=== PATIENT | female | born 1965 | race Caucasian/White ===

== ENCOUNTER 2017-01-25 13:39 | Inpatient (IN) | payer OTHER ==
[~2017-01-25] VITALS: Ht 160 cm; Wt 96.6 kg
--- NOTE | 2017-01-25 13:44 | NUR ---
PT PRESENTS TO ER C/O OF FEELING SOB WITH EXERTION. PT STATES SHE HAS BEEN COUGHING FOR OVER A MONTH AND STATES SHE FEELS LIKE THE COUGH AND SOB IS WORSE. PT AFEBRILE IN TRIAGE WITH A TEMP OF 99.3, PT SKIN WARM. PT RA SAT 95%, PT TACHYCARDIC EKG DONE AT TRIAGE
--- NOTE | 2017-01-25 13:46 | NUR ---
PT ALSO C/O OF CHEST PAIN ON AND OFF FOR A MONTH
--- NOTE | 2017-01-25 14:03 | ED DYSPNEA/ASTHMA COMPLAINT ---
History of Present Illness General Chief Complaint: Nausea, Vomiting, Diarrhea Stated Complaint: NVD Source: patient, family, old records Exam Limitations: no limitations Vital Signs & Intake/Output Vital Signs & Intake/Output Vital Signs Date Time Temp Pulse Resp B/P Pulse O2 O2 Flow FiO2 Ox Delivery Rate 01/26 0720 97.6 85 20 124/78 97 Nasal 4.0L Cannula 01/26 0000 Nasal 3.0L Cannula 01/25 2236 98.9 90 22 118/72 93 Nasal 4.0L Cannula 01/25 1826 95 Nasal 3.0L Cannula 01/25 1826 98.1 96 20 132/62 95 Nasal 3.0L Cannula 01/25 1757 98.0 01/25 1750 98.0 98 20 126/58 95 Nasal 3.0L Cannula 01/25 1654 94 Nasal 3.0L Cannula 01/25 1642 101.0 115 20 144/78 94 Nasal 3.0L Cannula 01/25 1641 101.3 01/25 1554 101.3 122 18 154/77 92 Room Air 01/25 1436 92 01/25 1430 92 Room Air 01/25 1342 99.3 138 22 155/88 95 Room Air ED Intake and Output 01/26 0000 01/25 1200 Intake Total Output Total 400 Balance -400 Output, Urine 400 Patient 213 lb Weight Allergies Coded Allergies: Penicillins (Intermediate, HIVES 01/25/17) Reconcile Medications No Known Home Medications Triage Note: PT PRESENTS TO ER C/O OF FEELING SOB WITH EXERTION. PT STATES SHE HAS BEEN COUGHING FOR OVER A MONTH AND STATES SHE FEELS LIKE THE COUGH AND SOB IS WORSE. PT AFEBRILE IN TRIAGE WITH A TEMP OF 99.3, PT SKIN WARM. PT RA SAT 95%, PT TACHYCARDIC EKG DONE AT TRIAGE Triage Nurses Notes Reviewed? yes Onset: Abrupt Duration: week(s): (2), constant, getting worse Timing: recent history Severity: moderate, severe Activities at Onset: rest Prior Episodes/Possible Cause: no prior episodes Associated Symptoms: cough, chest pain HPI: 51-year-old female with history of chronic back pain presents to ER for evaluation complaining of progressively worsening constant shortness of breath that was initially present with exertion however now present with rest pain with inspiration cough productive of clear to yellow sputum and chest pain has been going on for the past 1 month however worse over the past 2 weeks. She has not sought care for the symptoms until today. She is an active smoker 10 cigarettes per day. She denies any history of asthma or lung problems. She is not taken anything for symptoms no recent travel no recent immobility no leg pain or swelling. She reports recent weight gain. No fever no chills no night sweats diaphoresis or weight loss no abdominal pain. Patient reports nausea without vomiting secondary to her coughing. (JAMILA NOEL) Past History Travel History Traveled to [place] past 21 day No Medical History Any Pertinent Medical History? see below for history Neurological: NONE EENT: NONE Cardiovascular: NONE Respiratory: NONE Gastrointestinal: NONE Hepatic: NONE Renal: NONE Musculoskeletal: DISC ISSUE CARPAL TUNNEL Surgical History Surgical History: none Psychosocial History What is your primary language Luxembourgish Tobacco Use: Current Daily Use Family History Hx Contributory? No (JAMILA NOEL) Review of Systems Review of Systems Constitutional: Reports: see HPI. All Other Systems: Reviewed and Negative Comments Review of systems: See HPI, All other systems negative. Constitutional, no chills no fever, no malaise HEENT: no sore throat no congestion, no ear pain Cardiovascular: chest pain , no palpitation , no orthopnea no ankle swelling Skin, no jaundice no rashes, no change in skin Respiratory: dyspnea cough sputum GI: No nausea no vomiting, no diarrhea : No dysuria Muscle skeletal: No joint pain, no joint swelling, no back pain, no neck pain, Neurologic: No numbness no headache Psych: No stress Heme/endocrine: No bruising no bleeding Immunology: No lymphadenopathy (JAMILA NOEL) Physical Exam Physical Exam General Appearance: well developed/nourished, alert, awake Respiratory: chest non-tender, crackles Comments: Well-developed well-nourished person in no acute distress HEENT: Normal EENT exam; PERRL, EOMI, HEAD is atraumatic. moist mucous membranes. Neck: Supple, no lymphadenopathy, normal range of motion Back: Nontender, no CVA tenderness. Full range of motion Cardiovascular: Regular rate and rhythms no murmurs rubs or gallops, normal JVP Respiratory: No respiratory distress. Patient speaking in full complete sentences. Crackles bilaterally no rhonchi no rales Abdomen: Soft, nontender nondistended, no appreciable organomegaly. Normal bowel sounds. No rebound/guarding, , No ascites. Extremity: No edema, full range of motion of extremities, normal and equal pulses bilaterally, 5 out of 5 strength noted to bilateral upper and lower extremities Neuro: Alert oriented x3, motor sensory normal, There were no obvious focal neurologic abnormalities. Skin: No appreciable rash on exposed skin, skin is warm and dry. Psych: Mood and affect is normal, memory and judgment is normal. Core Measures ACS in differential dx? Yes Severe Sepsis Present: No Septic Shock Present: No (TIBURCIO GONZALEZ,JAMILA) Progress Differential Diagnosis: asthma, AMI, bronchitis, costochondritis, CHF, COPD, musculoskeletal pain, pericarditis, pulmonary embolism, pneumonia, pneumothorax, unstable angina Plan of Care: Orders Procedure Date/time Status Nothing by Mouth 01/26 L Active Regular Diet 01/26 B Complete LACTIC ACID 01/26 0832 Active HEPATIC FUNCTION PANEL 01/26 0600 Complete GLUCOSE 01/26 0600 Complete WESTERGREN SED RATE 01/26 0600 Complete CORTISOL AM 01/26 0600 Complete CBC WITHOUT DIFFERENTIAL 01/26 0600 Complete BASIC ELECTROLYTES PLUS BUN&CR 01/26 0600 Complete ANTINUCLEAR ANTIBODY 01/26 0600 Active US-COMPLETE ABDOMEN 01/26 UNK Active ECHOCARDIOGRAM 01/26 UNK Active CORTISOL PM 01/25 2155 Complete OXYGEN SETUP (GEN) 01/25 2100 Complete LACTIC ACID 01/25 1958 Complete Vital Signs 01/25 1825 Active Teach/Educate 01/25 1825 Active Pain Treatment and Response 01/25 182 Active Nutritional Intake, Monitor 01/25 1825 Active Isolation 01/25 1825 Active Intake & Output 01/25 1825 Complete Patient Care Conference 01/25 1825 Active Activity/Ambulation 01/25 1825 Active Intake & Output 01/25 1759 Active Add-on Test (ER Only) 01/25 1735 Active STREP PNEUMO URINARY ANTIGEN 01/25 1731 Complete LEGIONELLA URINARY ANTIGEN 01/25 1731 Complete Add-on Test (ER Only) 01/25 1727 Active Pathway - chart 01/25 1712 Active House Staff 01/25 1712 Active Code Status 01/25 1712 Active Patient Data 01/25 1648 Active Admit to inpatient 01/25 1628 Active THYROID STIMULATING HORMONE 01/25 1426 Active LACTIC ACID 01/25 1426 Active HIV (Reflex to HIVCQ) 01/25 1426 Active HEPATITIS PANEL 01/25 1426 Active FREE T4 01/25 1426 Active CORTISOL PM 01/25 1426 Active B-TYPE NATRIURETIC PEP (BNP) 01/25 1426 Active Telemetry/Ham Curer 01/25 1413 Complete BLOOD CULTURE 01/25 1413 Active TROPONIN LEVEL 01/25 1413 Active MAGNESIUM 01/25 1413 Active COMPREHENSIVE METABOLIC PANEL 01/25 1413 Active CBC WITHOUT DIFFERENTIAL 01/25 1413 Complete EKG 01/25 1346 Active OXYGEN SETUP CHG 01/25 UNK Complete OXYGEN 01/25 UNK Complete OXYGEN TRANSPORT 01/25 UNK Complete TRC EVALUATION (GEN) 01/25 UNK Active Lab Add-on Test 01/25 UNK Active VTE Mechanical Prophylaxis 01/25 UNK Active Current Medications Sig/Santa Start time Last Medication Dose Stop Time Status Admin Azithromycin 500 MG 1700 01/26 1700 AC (Zithromax) Sodium Chloride 250 ML (Normal Saline 0.9%) Ceftriaxone Sodium 1,000 MG 1700 01/26 1700 AC (Rocephin) Indomethacin Sodium 25 MG TID 01/26 1000 AC (Indocin 25 MG Cap) Acetaminophen 650 MG Q4P PRN 01/25 1715 AC (Tylenol) Ibuprofen 600 MG Q6P PRN 01/25 1715 CAN (Motrin) Laboratory Tests 01/26/17 0735: Anion Gap 9, Estimated GFR > 60, BUN/Creatinine Ratio 23.3, Glucose 108 H, Total Bilirubin 0.3, Direct Bilirubin 0.3, AST 33, ALT 72 H, Alkaline Phosphatase 143 H, Total Protein 6.5, Albumin 3.6, Cortisol AM Sample 2.4 L, CBC w Diff NO MAN DIFF REQ, RBC 4.23, MCV 94.5, MCH 31.5 H, RDW 14.5, MPV 9.4, Gran % 81.8 H, Lymphocytes % 12.2 L, Monocytes % 5.5, Eosinophils % 0.1, Basophils % 0.4, Absolute Granulocytes 8.1 H, Absolute Lymphocytes 1.2, Absolute Monocytes 0.5, Absolute Eosinophils 0, Absolute Basophils 0, PUBS MCHC 33.3, ESR Westergren 25 H, JULIAN Titer Pending, Anti-Nuclear Antibody Pending 01/25/17 2155: Lactic Acid 3.3 H 01/25/17 2155: Cortisol PM Sample 8.6 01/25/17 1658: Lactic Acid Cancelled 01/25/17 1426: Anion Gap 10, Estimated GFR > 60, BUN/Creatinine Ratio 14.3, Glucose 102 H, Lactic Acid 1.1, Calcium 8.9, Magnesium 1.6, Total Bilirubin 0.4, AST 47 H, ALT 88 H, Alkaline Phosphatase 165 H, Troponin I < 0.01, [id number] Pept 478 H, Total Protein 7.2, Albumin 4.0, Globulin 3.2, Albumin/Globulin Ratio 1.3 , TSH 2.140, Free T4 1.07, Cortisol PM Sample 22.4 H, CBC w Diff NO MAN DIFF REQ, RBC 3.87 L, MCV 93.8, MCH 32.0 H, RDW 14.4, MPV 8.6, Gran % 83.0 H, Lymphocytes % 10.6 L, Monocytes % 4.7, Eosinophils % 1.4, Basophils % 0.3, Absolute Granulocytes 6.6 H, Absolute Lymphocytes 0.8 L, Absolute Monocytes 0.4, Absolute Eosinophils 0.1, Absolute Basophils 0, PUBS MCHC 34.1, Hepatitis A IgM Ab Pending, Hep Bs Antigen NONREACTIVE, Hep B Core IgM Ab Conf Pending, Hepatitis C Antibody Pending, HIV 1&2 Ab Western Blot NONREACTIVE Microbiology 01/26 15 URINE ROUT: Legionella Antigen - COMP 01/26 15 URINE ROUT: Streptococcus pneumoniae Antigen (M - COMP 01/25 1517 BLOOD: Blood Culture - RECD 01/25 1502 BLOOD: Blood Culture - RECD Labs ordered old records reviewed 01/25/2017 3:12:46 PM patient reports cough pain has slightly improved with breathing treatment and discussed currently for x-ray findings pending CAT scan and labs 01/25/2017 4:49:31 PM oxygen saturation 80-89%. Placed on 3 L O2 by discussed with her and her family at length her CAT scan findings need for admission which the patient was initially resistant to. Case and CAT scan were reviewed with Dr. Mcghee agrees with plan, case was discussed with Dr. mcarthur. will admit to gen med, will place on rocephin 1g iv, [id number] iv per dr mcarthur (JAMILA NOEL) Diagnostic Imaging: Viewed by Me: Radiology Read, CT Scan. Discussed w/RAD: Radiology Read, CT Scan. Radiology Impression: PATIENT: CURTIS BORGES PRESENT AGE: 51 PATIENT ACCOUNT NO: [id number] : 65 LOCATION: ER ORDERING PHYSICIAN: JAMILA GONZALEZ SERVICE DATE: 01/25/17 EXAM TYPE: RAD - XRY- PORTABLE CHEST XRAY EXAMINATION: XR PORTABLE CHEST CLINICAL INFORMATION: Dyspnea and chest pain. COMPARISON: None TECHNIQUE: Portable AP view of the chest was obtained. FINDINGS: There is elevation of the right hemidiaphragm. Bronchial wall thickening noted without dense consolidation. No effusion or edema. No pneumothorax. The cardiomediastinal silhouette is within normal limits. IMPRESSION: No dense consolidation. Bronchial wall thickening can be seen with a small airways process such as asthma or atypical/viral infection. DICTATED BY: BRITTNEY GODINEZ MD DATE/TIME DICTATED:01/25/171458 CHIEF HYDROELECTRIC STATION OPERATOR: JOSE DATE/TIME TRANSCRIBED:01/25/171458 CONFIDENTIAL, DO NOT COPY WITHOUT APPROPRIATE AUTHORIZATION. <Electronically signed in Other Vendor System> SIGNED BY: BRITTNEY GODINEZ MD 01/25/17 1503, PATIENT: CURTIS BORGES PRESENT AGE: 51 PATIENT ACCOUNT NO: [id number] : 65 LOCATION: [facility] ORDERING PHYSICIAN: JAMILA GONZALEZ SERVICE DATE : 01/25/17 EXAM TYPE: CAT - CTA CHEST-PULMONARY EMBOLISM Addendum: Findings were discussed with Dr. Parker at 4:25 PM on 01/25/2017. Addendum Signed by: RORY FULLER MD 01/25/17 1621 EXAMINATION: CT ANGIOGRAM OF THE CHEST WITH AND WITHOUT CONTRAST (CT PULMONARY ANGIOGRAM FOR PE) CLINICAL INFORMATION: Dyspnea. Evaluate for pulmonary embolism. COMPARISON: Chest x-ray dated 01/25/2017 TECHNIQUE: Prior to contrast administration, noncontrast localization images were obtained. Subsequently, multidetector volumetric imaging was performed from the thoracic inlet to below the diaphragms following the administration of 70 mL Optiray 350 intravenous contrast. No contrast reaction reported. Sagittal, coronal, and MIP oblique sagittal reformatted images were obtained on the CT workstation, uploaded to PACS, and reviewed. Total exam dose-length product 1079.23 mGy-cm. FINDINGS: QUALITY OF STUDY/CONTRAST BOLUS: Satisfactory PULMONARY ARTERIES: No evidence of acute pulmonary embolism. THORACIC AORTA: No aneurysm or dissection. LUNG: Peribronchial opacities predominantly noted in the right upper lobe with associated bronchial wall thickening. Associated tree-in- bud hazy dense and groundglass nodular opacities also identified in the right upper lobe. More subtle hazy groundglass tree-in-bud nodular opacities also noted in the posterior segment left upper lobe, right middle lobe and bilateral lower lobes. No suspicious cavitary lesions identified. No evidence of a central obstructing lesion. Underlying centrilobular emphysematous changes. PLEURA: No pleural effusion or pneumothorax. MEDIASTINUM: There is mediastinal and right hilar lymphadenopathy. Larger lymph nodes measure approximately 1 to 1.5 cm in short axis. These lymph nodes are noted in the prevascular space, pretracheal, right paratracheal, precarinal and subcarinal locations. Right hilar adenopathy. No evidence of septal bowing or right heart strain. CHEST WALL/AXILLA: No axillary or internal mammary lymphadenopathy. OSSEOUS STRUCTURES: Degenerative changes of the thoracic spine no acute osseous abnormality. UPPER ABDOMEN: Low- attenuation hepatic parenchyma compatible with hepatic steatosis. Status post cholecystectomy. No reflux of contrast into the hepatic veins to suggest elevated right heart pressures. IMPRESSION: 1. There is no CTA evidence of acute pulmonary embolism. 2. Larger peribronchial opacities in the configuration of large centrilobular nodules with associated bronchial wall thickening. Smaller centrilobular tree in bud nodular opacities also noted in the right upper lobe. Small centrilobular groundglass nodules bilateral lower lobes and to a lesser extent left upper lobe and right middle lobe. These findings may represent acute bronchopneumonia in the appropriate clinical setting. There may be endobronchial extension of the disease process to the remaining lungs. Differential possibility also includes post primary tuberculosis or nontuberculous mycobacterial infection. Clinical correlation is recommended. Follow-up CT chest after treatment recommended to demonstrate complete resolution of the process. 3. Mediastinal and right hilar lymphadenopathy likely representing reactive change. 4. Hepatic steatosis. VTE: Negative for acute PE DICTATED BY: RORY FULLER MD DATE/TIME DICTATED:01/25/171552 CHIEF HYDROELECTRIC STATION OPERATOR:JOSE DATE/TIME TRANSCRIBED:01/25/171552 CONFIDENTIAL, DO NOT COPY WITHOUT APPROPRIATE AUTHORIZATION. <Electronically signed in Other Vendor System> SIGNED BY: RORY FULLER MD 01/25/17 1628 Initial ED EKG: SINUS TACH AT 130, NO ACUTE st SEGMENT CHANGES NORMAL AXIS Rhythm Strip: sinus tachycardia (JAMILA NOEL) Departure Departure Time of Disposition: 1645 Disposition: STILL A PATIENT Condition: Stable Clinical Impression Primary Impression: Bronchopneumonia Secondary Impressions: Lung nodules Referrals: PATIENT HAS NO PRIMARY CARE DR (PCP/Family) Departure Forms: Customer Survey General Discharge Information Prescriptions: Current Visit Scripts No Known Home Medications Admission Note Spoke With: MENDY MCARTHUR MD Documentation of Exam: Documentation of any treatments & extenuating circumstances including Concerns Regarding Discharge (functional status, medication knowledge or non-compliance, living conditions, etc.) that warrant an admission rather than observation: Trend labs cultures respiratory treatments when necessary patient's oxygen saturation 88-89% on room air, pulmonology infectious disease consult (JAMILA NOEL) PA/DOCUMENTATION SPECIALIST Co-Sign Statement Statement: ED Attending supervision documentation- [] I saw and evaluated the patient. I have also reviewed all the pertinent lab results and diagnostic results. I agree with the findings and the plan of care as documented in the PA's/DOCUMENTATION SPECIALIST's documentation. [X] I have reviewed the ED Record and agree with the PA's/DOCUMENTATION SPECIALIST's documentation. [] Additions or exceptions (if any) to the PAs/DOCUMENTATION SPECIALIST's note and plan are summarized below: [] (CHARLOTTE MARTINEZ,SUMAN) Critical Care Note Critical Care Note Critical Care Time: 30-74 min (JAMILA NOEL)
--- NOTE | 2017-01-25 14:27 | NUR ---
PT EVALUATED BY LISA DEY. BLOOD DRAWN AND SENT TO LAB-SST,JACKIE,HUNTER,MASON.
[2017-01-25 14:32] LABS: ABSOLUTE BASOPHIL COUNT 0 /CUMM (0.0-0.2); ABSOLUTE EOSINOPHIL COUNT 0.1 /CUMM (0.0-0.7); ABSOLUTE GRANULOCYTE CT 6.6 /CUMM (1.4-6.5); ABSOLUTE LYMPH COUNT 0.8 /CUMM (1.2-3.4); ABSOLUTE MONOCYTE COUNT 0.4 /CUMM (0.10-0.60); BASOPHIL % 0.3 % (0.0-2.0); EOSINOPHIL % 1.4 % (0-5); HEMATOCRIT 36.3 % (37-47); MEAN CORPUSCULAR HGB CONC 34.1 G/DL (33.0-37.0); MEAN CORPUSCULAR VOLUME 93.8 FL (81.0-99.0); MEAN PLATELET VOLUME 8.6 FL (7.4-10.4); PLATELET COUNT 161 /CUMM (130-400); RBC DISTRIBUTION WIDTH 14.4 % (11.5-14.5); RED BLOOD CELL CT 3.87 /CUMM (4.20-5.40)
--- NOTE | 2017-01-25 14:35 | NUR ---
RESP AT BEDSIDE L[facility]D MOSELEY.
--- NOTE | 2017-01-25 14:51 | NUR ---
IV EST, PT MEDICATED WITH SOLU MEDROL AND ROBITUSSIN AC PER EMAR.
--- NOTE | 2017-01-25 15:03 | RADIOLOGY REPORT ---
EXAMINATION: XR PORTABLE CHEST CLINICAL INFORMATION: Dyspnea and chest pain. COMPARISON: None TECHNIQUE: Portable AP view of the chest was obtained. FINDINGS: There is elevation of the right hemidiaphragm. Bronchial wall thickening noted without dense consolidation. No effusion or edema. No pneumothorax. The cardiomediastinal silhouette is within normal limits. IMPRESSION: No dense consolidation. Bronchial wall thickening can be seen with a small airways process such as asthma or atypical/viral infection.
--- NOTE | 2017-01-25 15:39 | NUR ---
PT TO CAT SCAN BY STRETCHER.
--- NOTE | 2017-01-25 16:28 | CT SCAN REPORT ---
EXAMINATION: CT ANGIOGRAM OF THE CHEST WITH AND WITHOUT CONTRAST (CT PULMONARY ANGIOGRAM FOR PE) CLINICAL INFORMATION: Dyspnea. Evaluate for pulmonary embolism. COMPARISON: Chest x-ray dated 01/25/2017 TECHNIQUE: Prior to contrast administration, noncontrast localization images were obtained. Subsequently, multidetector volumetric imaging was performed from the thoracic inlet to below the diaphragms following the administration of 70 mL Optiray 350 intravenous contrast. No contrast reaction reported. Sagittal, coronal, and MIP oblique sagittal reformatted images were obtained on the CT workstation, uploaded to PACS, and reviewed. Total exam dose-length product 1079.23 mGy-cm. FINDINGS: QUALITY OF STUDY/CONTRAST BOLUS: Satisfactory PULMONARY ARTERIES: No evidence of acute pulmonary embolism. THORACIC AORTA: No aneurysm or dissection. LUNG: Peribronchial opacities predominantly noted in the right upper lobe with associated bronchial wall thickening. Associated tree-in-bud hazy dense and groundglass nodular opacities also identified in the right upper lobe. More subtle hazy groundglass tree-in-bud nodular opacities also noted in the posterior segment left upper lobe, right middle lobe and bilateral lower lobes. No suspicious cavitary lesions identified. No evidence of a central obstructing lesion. Underlying centrilobular emphysematous changes. PLEURA: No pleural effusion or pneumothorax. MEDIASTINUM: There is mediastinal and right hilar lymphadenopathy. Larger lymph nodes measure approximately 1 to 1.5 cm in short axis. These lymph nodes are noted in the prevascular space, pretracheal, right paratracheal, precarinal and subcarinal locations. Right hilar adenopathy. No evidence of septal bowing or right heart strain. CHEST WALL/AXILLA: No axillary or internal mammary lymphadenopathy. OSSEOUS STRUCTURES: Degenerative changes of the thoracic spine no acute osseous abnormality. UPPER ABDOMEN: Low-attenuation hepatic parenchyma compatible with hepatic steatosis. Status post cholecystectomy. No reflux of contrast into the hepatic veins to suggest elevated right heart pressures. IMPRESSION: 1. There is no CTA evidence of acute pulmonary embolism. 2. Larger peribronchial opacities in the configuration of large centrilobular nodules with associated bronchial wall thickening. Smaller centrilobular tree in bud nodular opacities also noted in the right upper lobe. Small centrilobular groundglass nodules bilateral lower lobes and to a lesser extent left upper lobe and right middle lobe. These findings may represent acute bronchopneumonia in the appropriate clinical setting. There may be endobronchial extension of the disease process to the remaining lungs. Differential possibility also includes post primary tuberculosis or nontuberculous mycobacterial infection. Clinical correlation is recommended. Follow-up CT chest after treatment recommended to demonstrate complete resolution of the process. 3. Mediastinal and right hilar lymphadenopathy likely representing reactive change. 4. Hepatic steatosis. VTE: Negative for acute PE
--- NOTE | 2017-01-25 16:41 | NUR ---
PT MEDICATED WITH DILAUDID AND OFIRMEV INFUSING PER BHARATI. LISA DEY AT BEDSIDE TO DISCUSS TEST RESULTS AND POC.
--- NOTE | 2017-01-25 17:08 | NUR ---
PT TO ROOM 217 BED 1
--- NOTE | 2017-01-25 17:40 | NUR ---
HOUSE STAFF AT BEDSIDE FOR PT EVAL.
--- NOTE | 2017-01-25 17:58 | NUR ---
REPORT GIVEN TO MAGDALENA JULIEN TO 2NB.
--- NOTE | 2017-01-25 18:08 | PN- Att Addend ---
Attending MD Review Statement Attending Statement Attending MD Statement: examined this patient, discuss w/resident/PA/COFFEE TASTER, agreed w/resident/PA/COFFEE TASTER, discussed with family, reviewed EMR data (avail), discussed w/ nursing Attending Assessment/Plan: Laboratory Tests 01/25/17 1658: Lactic Acid Cancelled 01/25/17 1426: Anion Gap 10, Estimated GFR > 60, BUN/Creatinine Ratio 14.3, Glucose 102 H, Lactic Acid 1.1, Calcium 8.9, Magnesium 1.6, Total Bilirubin 0.4, AST 47 H, ALT 88 H, Alkaline Phosphatase 165 H, Troponin I < 0.01, Total Protein 7.2, Albumin 4.0, Globulin 3.2, Albumin/Globulin Ratio 1.3, TSH Pending, Free T4 Pending, Cortisol PM Sample Pending, CBC w Diff NO MAN DIFF REQ, RBC 3.87 L, MCV 93.8, MCH 32.0 H, RDW 14.4, MPV 8.6, Gran % 83.0 H, Lymphocytes % 10.6 L, Monocytes % 4.7, Eosinophils % 1.4, Basophils % 0.3, Absolute Granulocytes 6.6 H, Absolute Lymphocytes 0.8 L, Absolute Monocytes 0.4, Absolute Eosinophils 0.1 , Absolute Basophils 0, PUBS MCHC 34.1 Vital Signs Date Time Temp Pulse Resp B/P Pulse O2 O2 Flow FiO2 Ox Delivery Rate 01/25 1757 98.0 01/25 1654 94 Nasal 3.0L Cannula 01/25 1642 101.0 115 20 144/78 94 Nasal 3.0L Cannula 01/25 1641 101.3 01/25 1554 101.3 122 18 154/77 92 Room Air 01/25 1436 92 01/25 1342 99.3 138 22 155/88 95 Room Air Patient seen and examined at bedside. Discussed with patient as well as patient 's brother at bedside the care plan. Patient has past medical history of smoking since age 11. Smokes about half a pack to 1 pack a day and also drinks every other day 2-3 drinks of hard liquor which is usually rum. Patient presented with chief complaint of the shortness of breath with exertion as well as pleuritic chest pain going on for about 1 week. Her shortness of breath has been going on for about a month and also she complains of weight gain over the last few months. Patient in emergency room was found to have fever of 101 and also found to be tachycardic. Her other significant past medical history is chronic back pain. Her CT scan findings are as follows. "Larger peribronchial opacities in the configuration of large centrilobular nodules with associated bronchial wall thickening. Smaller centrilobular tree in bud nodular opacities also noted in the right upper lobe. Small centrilobular groundglass nodules bilateral lower lobes and to a lesser extent left upper lobe and right middle lobe. These findings may represent acute bronchopneumonia in the appropriate clinical setting. There may be endobronchial extension of the disease process to the remaining lungs." Patient being admitted for pneumonia. We will start her on ceftriaxone and Zithromax. Patient already got one dose of both antibiotics in the emergency room. She was also given Solu-Medrol IV in the ER. We will consult pulmonology to evaluate the patient given her extensive CAT scan findings. We will also get an echocardiogram given her weight gain and the bilateral lower extremity edema. We will check TSH and a.m. cortisol level. We will also send blood cultures as well as sputum culture. We will send urine Legionella as well as mycoplasma antigen.
--- NOTE | 2017-01-25 18:09 | Admission Certification ---
Admission Certification Certification Statement - As attending physician, I certify that at the time of - admission, based on clinical presentation, severity of - symptoms, need for further diagnostic testing and - therapeutic interventions, and risk of adverse outcomes - without in-hospital treatment, in my clinical assessment, - this patient requires an acute hospital stay for a minimum - of two nights or longer. I have also considered psychsocial - factors such as support system, advanced age, financial - issues, cognitive issues, and failed out-patient treatments, - past re-admission history, safety of patient, and lack of - compliance as applicable. Specific rationale supporting this admission is: pneumonia.
[2017-01-25 18:26] VITALS: BP 132/62
--- NOTE | 2017-01-25 18:50 | History & Physical ---
See Addendum MARIN MARTINEZ,CEM 01/25/17 3189: General Information and HPI MD Statement: I have seen and personally examined CURTIS BORGES and documented this H&P. The patient is a 51 year old F who presented with a patient stated chief complaint of [sob, cough]. Source of Information: patient Exam Limitations: no limitations History of Present Illness: Is is a 51-year-old female with no known past medical history, comes in for chief complaint of shortness of breath, cough, and diarrhea. Patient states that she has noted worsening shortness of breath the past 4 days. Specifically, she states that she is unable to lay down flat and has not slept for 4 days. She states needs a minimum of 6 Pillows, or needs to sit vertically to avoid feeling short of breath. Additionally, she endorses worsening dyspnea on exertion over the past 4-5 days. She states now she is breath even with the most minimal tasks such as going to the bathroom or brushing her teeth. She also endorses subjective sense of fever, without measured temperature of home. Only recent infection was a sinusitis several weeks ago. She also endorses sensation of chest pressure in the middle of her sternum and under her left breast, which she describes as non-exertional and improves with massage. She is unable to describe the pain well. She does state that during episodes of pain if she is exerting herself the sensation is worse. Patient denies any headache, sore throat, worsening cough, palpitationsm nausea, vomiting, abdominal pain, change in appetite, melena, or bright red blood per rectum. She does endorse non-productive cough, dyspnea on exertion, orthopnea, chest pressure, diarrhea 2-3x daily, and an unintentional lb gain of almost 100lbs. She states that she was 127 lbs about a year ago. Social hx pertinent for .5ppd daily since age of 11 and drinks liquor several shots worth 3-4 times a week. Occasional use of marijuana. Allergies/Medications Allergies: Coded Allergies: Penicillins (Intermediate, HIVES 01/25/17) Home Med list No Known Home Medications Compliance With Home Meds: UNKNOWN Past History Travel History Traveled to [place] past 21 day No Medical History Neurological: NONE EENT: NONE Cardiovascular: NONE Respiratory: NONE Gastrointestinal: NONE Hepatic: NONE Renal: NONE Musculoskeletal: DISC ISSUE CARPAL TUNNEL Isolation History: Standard Surgical History Surgical History: none Past Family/Social History Psychosocial History Smoking Status: Current Everyday Smoker ETOH Use: heavy use Illicit Drug Use: marijuana Functional Ability ADLs Independent: dressing, eating, toileting, bathing. Review of Systems Review of Systems Constitutional: Reports: chills, diaphoresis, fever, malaise, weakness. EENTM: Denies: blurred vision. Cardiovascular: Reports: chest pain, orthopena, peripheral edema. Respiratory: Denies: orthopnea, short of breath, sputum production. GI: Reports: diarrhea. Denies: abdominal pain, bloating, constipation. Genitourinary: Reports: urgency. Musculoskeletal: Reports: muscle stiffness. Neurological/Psychological: Reports: no symptoms. Exam & Diagnostic Data Last 24 Hrs of Vital Signs/I&O Vital Signs Date Time Temp Pulse Resp B/P Pulse O2 O2 Flow FiO2 Ox Delivery Rate 01/25 1826 95 Nasal 3.0L Cannula 01/25 1826 98.1 96 20 132/62 95 Nasal 3.0L Cannula 01/25 1757 98.0 01/25 1750 98.0 98 20 126/58 95 Nasal 3.0L Cannula 01/25 1654 94 Nasal 3.0L Cannula 01/25 1642 101.0 115 20 144/78 94 Nasal 3.0L Cannula 01/25 1641 101.3 01/25 1554 101.3 122 18 154/77 92 Room Air 01/25 1436 92 01/25 1430 92 Room Air 01/25 1342 99.3 138 22 155/88 95 Room Air Physical Exam General Appearance Alert, Oriented X3, Cooperative, No Acute Distress Skin No Significant Lesion HEENT Atraumatic, PERRLA, EOMI Neck Supple Cardiovascular Regular Rate, Normal S1, Normal S2, No Murmurs Lungs crackles present in l. lobe Abdomen Normal Bowel Sounds, Soft, No Tenderness Neurological Normal Speech, Strength at 5/5 X4 Ext, Cranial Nerves 3-12 NL Extremities 2+ pitting edema Last 24 Hrs of Labs/Shaggy: Laboratory Tests 01/25/17 1658: Lactic Acid Cancelled 01/25/17 1426: Anion Gap 10, Estimated GFR > 60, BUN/Creatinine Ratio 14.3, Glucose 102 H, Lactic Acid 1.1, Calcium 8.9, Magnesium 1.6, Total Bilirubin 0.4, AST 47 H, ALT 88 H, Alkaline Phosphatase 165 H, Troponin I < 0.01, Total Protein 7.2, Albumin 4.0, Globulin 3.2, Albumin/Globulin Ratio 1.3, TSH 2.140, Free T4 1.07, Cortisol PM Sample 22.4 H, CBC w Diff NO MAN DIFF REQ, RBC 3.87 L, MCV 93.8, MCH 32.0 H, RDW 14.4, MPV 8.6, Gran % 83.0 H, Lymphocytes % 10.6 L, Monocytes % 4.7, Eosinophils % 1.4, Basophils % 0.3, Absolute Granulocytes 6.6 H, Absolute Lymphocytes 0.8 L, Absolute Monocytes 0.4, Absolute Eosinophils 0.1, Absolute Basophils 0, PUBS MCHC 34.1 Microbiology 01/25 1731 URINE ROUT: Legionella Antigen - COLB 01/25 1731 URINE ROUT: Streptococcus pneumoniae Antigen (M - COLB 01/25 1517 BLOOD: Blood Culture - RECD 01/25 150 BLOOD: Blood Culture - RECD Assessment/Plan Assessment: This is a 50-year-old female with unknown past medical history presents with several complaints including shortness of breath, orthopne and diarrhea. Vitals: 101.3, 122, 18, normal differential was 77, 92 CBC: White count 8.0, hemoglobin 12.4, hematocrit 36.3, MCV 93, platelet 161 BEP within normal limits AST 47, ALT 8, alkaline phosphatase 165 TSH 2.1, T4 1 0.07, p.m. cortisol 22.4 (after Solu-Medrol) EKG shows sinus tachycardia and Q waves presented im 2, 3 and aVF. Plan 1. Shortness of breath/orthopnea: Unsure of etiology is as patient has no past medical history. However given alcohol cannot rule out cirrhosis for fluid overload and 100 pound weight gain. Etiology seems unlikely for edema given normal BUN/creatinine. Patient does not carry diagnosis of CHF. * Follow-up function * Follow-up cortisol * A.m. echocardiogram * BNP * Counselled on smoking cessation * I/os * Consider Lasix in a.m. * Nasal cannula for sats greater 92 * Legionella antigen/influenza/s. pneumo 2. Nodules on CT: incidental findings. * Consult pulm 3. PNA: She presents with fever of 1.3 and tachycardia. Meets criteria for source. CT shows evidence of consolidation. Likely pneumonia. * TRT fpr CAP with ceftriaxone and azithromycin 4. Transaminitis: Patient's a mild transaminitis. Likely secondary to EtOH consumption. * cONT' To monitor As Ranked By This Provider Problem List: 1. Bronchopneumonia 2. Lung nodules Core Measures/Miscellaneous Acute Coronary Syndrome ACS Diagnosis: No Cerebrovascular Accident CVA/TIA Diagnosis: No Congestive Heart Failure CHF Diagnosis: No Venous Thromboembolism VTE Risk Factors: Acute medical illness, Age > 40 No Mech VTE prophylaxis d/t: No contraindications No VTE Pharm Prophylaxis d/t: No contraindications VTE Diagnosis: No VTE Type: NONE VTE Confirmed by (Test): NONE Severe Sepsis Severe Sepsis Present: No Septic Shock Septic Shock Present: No Miscellaneous Documentation Attending Case Discussed With: MENDY GIORDANO MD Primary Care Physician: PATIENT HAS NO PRIMARY CARE DR Patient sees these Specialists NONE Level of Patient Care: General Medicine ROSMERY VÁZQUEZ MD 01/25/171: Resident Review Statement Resident Statement: examined this patient, discussed with epidemiology internship, agreed with epidemiology internship, discussed with family, reviewed EMR data (avail), discussed with nursing , discussed with case mgmt, reviewed images, amended to note Other Findings: This is a51 Y/Of with no significant PMH and nnot on any OTC or prescriptions medications who is here for the persistent shortness and cough that she has noticed for many months but failed to seek any medical advice, SHe was convinced by her broteher to get evlauated in the ED today. Persistnet chest congestion and shortness of breath with mild produtuve cough.Associated with fevers and chills and nigt sweats. She has felt that her legs are also swollen and she feels she has gained weight. She denies any recent travels ourtside the [place] or long distsnce travel of any sort Everyday smoker and drinks alcohol occasional. She denies any recreational drug use or IV drug injections Vitals at time of adisisons showed: temp 101.3,BP 114/78,,RR 18,Sats 95% on 3L of O2 Labs: WBC of 8 with no bands,normal HB and HCT EKG shows sinus tachycardia CTA was negatiive for any PE Larger peribronchial opacities in the configuration of large centrilobular nodules with associated bronchial wall thickening. Smaller centrilobular tree in bud nodular opacities also noted in the right upper lobe. Small centrilobular groundglass nodules bilateral lower lobes and to a lesser extent left upper lobe and right middle lobe. Asessment: 1,Acute Hypoxiac Respiratory failure carri jairar from [facility] aquired PNA. Acute Pe ruked out Considering the CT findings of centrilobular findings ,other possibilities inculde the GPA vs sarcoidosis. Considering the weight gain and fluuid overload will consider the possibility of CHF as wel but no workup or llab has been done so far 2. Everyday smoker PLan: Admit to GM floor Blood cultutrss times 2 Sputum cx Strep and legionella antigen HIV abd Hepatitus panel JULIAN and ESR TTE in am if pr BNNP is elevated PFTS on out patient basis Nebulization and TRC eval Pulm consult in am AFB for sputum Caftriaxone and Azithromycin for now TSh and am cortisol DVT ppx with Lovenox Avoidnarcotics for pain meds use tyelnol Full code.
[2017-01-25 22:36] VITALS: BP 118/72
[2017-01-26] VITALS (7 sets, daily range): BP systolic 100–124; BP diastolic 70–78
--- NOTE | 2017-01-26 08:21 | Cons- Pulmonary ---
ROSMERY VÁZQUEZ MD 01/26/17 0816: General Information and HPI Consulting Request Date of Consult: 01/26/17 Requested By: DR Kristel Lim History of Present Illness: This is a 51-year-old female with no significant past medical history, haven't seen any medical advice for many years, every day smoker for the last 30 years, moderate alcohol consumer who presnted to the after she has been having persistent cough for the last 1 year.Her symptoms have been worseing for the last 3 months . Symptoms mostly include worseing cough associated with whitish and sometime yellowsih sputums.Denies any sick contacts but works at [employer] and cannot specifically rember any specific sick contacts. She has noticed increase in her weiight in the last 6 monhs and has been using upto 6 pillows for her orthopnea. Noticed increase in her leg swelling and denies any increase in salt intake. Also complains of persistent dry heaves and feel that she has multiple episodes of clear liquid vomitus when her coughing is worse.Her PO intake has [place] decreasing siince the last 3 months. Denies any IV drug use or any inhaled drugs She was evlauated by the primary team last night.Her vitals on admission showeed fever of 101.3,Saturation of 97% on 4 L and normal BP. The CT scan shows Bronchopulmonary PNA and questional Tuberculosis infection which the pulmonogy team was asked to evlauate. Allergies/Medications Allergies: Coded Allergies: Penicillins (Intermediate, HIVES 01/25/17) Home Med List: No Known Home Medications Current Medications: Current Medications Sig/Santa Start time Last Medication Dose Route Stop Time Status Admin Acetaminophen 650 MG Q4P PRN 01/25 1715 AC PO Acetaminophen 0 .STK-MED ONE 01/25 1633 DC IV Acetaminophen 1,000 MG ONCE ONE 01/25 1615 DC 01/25 N/A 1 UNIT IV 01/25 1629 1641 Albuterol Sulfate 3 ML ONCE ONE 01/25 1700 DC 01/25 INH 01/25 1701 1650 Albuterol Sulfate 3 ML ONCE ONE 01/25 1415 DC 01/25 INH 01/25 1416 1435 Azithromycin 500 MG 1700 01/26 1700 AC Sodium Chloride 250 ML IV Azithromycin 500 MG ONCE ONE 01/25 1700 DC 01/25 Sodium Chloride 250 ML IV 01/25 1759 1758 Ceftriaxone Sodium 1,000 MG 1700 01/26 1700 AC IV Ceftriaxone Sodium 0 .STK-MED ONE 01/25 1734 DC .ROUTE Ceftriaxone Sodium 1,000 MG ONCE ONE 01/25 1700 DC 01/25 IV 01/25 1701 1758 Enoxaparin Sodium 40 MG DAILY 01/25 2200 AC 01/25 SC 2243 Guaifenesin 10 ML .STK-MED ONE 01/25 2239 DC PO 01/25 2240 Guaifenesin/Codeine 10 ML ONCE ONE 01/25 1415 DC 01/25 Phosphate PO 01/25 1416 1451 Guaifenesin/ 10 ML Q4P PRN 01/25 2145 AC 01/26 Dextromethorphan PO 0345 Hydromorphone HCl 0 .STK-MED ONE 01/25 1633 DC .ROUTE Hydromorphone HCl 1 MG ONCE ONE 01/25 1615 DC 01/25 IV 01/25 1616 1641 Ibuprofen 600 MG Q6P PRN 01/25 1715 CAN PO Influenza Virus 0.5 ML ONCE ONE 01/25 1930 DC Vaccine IM 01/25 1931 Ipratropium [place] 2.5 ML ONCE ONE 01/25 1700 DC 01/25 INH 01/25 1701 1650 Ipratropium [place] 2.5 ML ONCE ONE 01/25 1415 DC 01/25 INH 01/25 1416 1435 Ketorolac 30 MG .STK-MED ONE 01/25 2248 DC Tromethamine IM 01/25 2249 Ketorolac 15 MG Q6P PRN 01/25 1715 AC 01/26 Tromethamine IV 0349 Magnesium Oxide 400 MG ONE ONE 01/25 2130 DC 01/25 PO 01/25 2131 2243 Methylprednisolone 0 .STK-MED ONE 01/25 1447 DC .ROUTE Methylprednisolone 125 MG ONCE ONE 01/25 1415 DC 01/25 IV 01/25 1416 1451 Morphine Sulfate 2 MG Q4P PRN 01/25 1715 DC IV Review of Systems Review of Systems Constitutional: Reports: see HPI. Cardiovascular: Reports: see HPI. Past History Travel History Traveled to [place] past 21 day No Medical History Blood Transfusion Hx: No Neurological: NONE EENT: NONE Cardiovascular: NONE Respiratory: NONE Gastrointestinal: NONE Hepatic: NONE Renal: NONE Musculoskeletal: DISC ISSUE CARPAL TUNNEL Surgical History Surgical History: 1 Family History Relations & Conditions If Any: MOTHER Relation not specified for: FH: hypertension Psychosocial History Where Do You Live? Home Who Do You Live With? spouse Services at Home: None Primary Language: Gabonese Smoking Status: Current Everyday Smoker ETOH Use: heavy use Illicit Drug Use: marijuana Functional Ability ADLs Independent: dressing, eating, toileting, bathing. Exam & Diagnostic Data Last 24 Hrs of Vital Signs/I&O Vital Signs Date Time Temp Pulse Resp B/P Pulse O2 O2 Flow FiO2 Ox Delivery Rate 01/26 0720 97.6 85 20 124/78 97 Nasal 4.0L Cannula 01/26 0000 Nasal 3.0L Cannula 01/25 2236 98.9 90 22 118/72 93 Nasal 4.0L Cannula 01/25 1826 95 Nasal 3.0L Cannula 01/25 1826 98.1 96 20 132/62 95 Nasal 3.0L Cannula 01/25 1757 98.0 01/25 1750 98.0 98 20 126/58 95 Nasal 3.0L Cannula 01/25 1654 94 Nasal 3.0L Cannula 01/25 1642 101.0 115 20 144/78 94 Nasal 3.0L Cannula 01/25 1641 101.3 01/25 1554 101.3 122 18 154/77 92 Room Air 01/25 1436 92 01/25 1430 92 Room Air 01/25 1342 99.3 138 22 155/88 95 Room Air Intake & Output 01/26 1600 01/26 0800 01/26 0000 Intake Total 510 Output Total 400 Balance 510 -400 Intake, IV 30 Intake, Oral 480 Number 0 Bowel Movements Output, Urine 400 Patient 213 lb Weight Physical Exam General Appearance: no apparent distress, alert, awake Head: normal appearance, evidence of injury Neck: normal inspection, supple Respiratory: B/L DECREASED AIRWAY ENTERY B/L WHEEZING Cardiovascular: edema Last 48 Hrs of Labs/Shaggy: Laboratory Tests 01/26/17 0735: Sodium Pending, Potassium Pending, Chloride Pending, Carbon Dioxide Pending, Anion Gap Pending, BUN Pending, Creatinine Pending, BUN/Creatinine Ratio Pending , Glucose Pending, Total Bilirubin Pending, Direct Bilirubin Pending, AST Pending, ALT Pending, Alkaline Phosphatase Pending, Total Protein Pending, Albumin Pending, Cortisol AM Sample Pending, CBC w Diff Pending, WBC Pending, RBC Pending, Hgb Pending, Hct Pending, MCV Pending, MCH Pending, RDW Pending, Plt Count Pending, MPV Pending, PUBS MCHC Pending, ESR Westergren Pending, JULIAN Titer Pending, Anti-Nuclear Antibody Pending 01/25/172154: Lactic Acid 3.3 H 01/25/172154: Cortisol PM Sample 8.6 01/25/17 1658: Lactic Acid Cancelled 01/25/17 1426: Anion Gap 10, Estimated GFR > 60, BUN/Creatinine Ratio 14.3, Glucose 102 H, Lactic Acid 1.1, Calcium 8.9, Magnesium 1.6, Total Bilirubin 0.4, AST 47 H, ALT 88 H, Alkaline Phosphatase 165 H, Troponin I < 0.01, Kvx-S-Zedhwufgoeg Pept 478 H, Total Protein 7.2, Albumin 4.0, Globulin 3.2, Albumin/Globulin Ratio 1.3 , TSH 2.140, Free T4 1.07, Cortisol PM Sample 22.4 H, CBC w Diff NO MAN DIFF REQ, RBC 3.87 L, MCV 93.8, MCH 32.0 H, RDW 14.4, MPV 8.6, Gran % 83.0 H, Lymphocytes % 10.6 L, Monocytes % 4.7, Eosinophils % 1.4, Basophils % 0.3, Absolute Granulocytes 6.6 H, Absolute Lymphocytes 0.8 L, Absolute Monocytes 0.4, Absolute Eosinophils 0.1, Absolute Basophils 0, PUBS MCHC 34.1, Hepatitis A IgM Ab Pending, Hep Bs Antigen Pending, Hep B Core IgM Ab Conf Pending, Hepatitis C Antibody Pending, HIV 1&2 Ab Western Blot NONREACTIVE Microbiology 01/26 15 URINE ROUT: Legionella Antigen - COMP 01/26 15 URINE ROUT: Streptococcus pneumoniae Antigen (M - COMP Assessment/Plan Impression/Plan: This is a 51 Y/Of everyday smoker and moderate alcohol consmtption but last drink 48 hiurs back,with no presented with Patient presented with chief complaint of the shortness of breath with exertion as well as pleuritic chest pain going on for about 3 months but worsend in the last 24 hours. . Patient in emergency room was found to have fever of 101 and also found to be tachycardic. The The CT scan shows Bronchopulmonary PNA and questional Tuberculosis infection which the pulmonogy team was asked to evlauate. Asessment: 1. Acute Hypoxiac Respiratory failure likley from CPNA 2.Fluid overload and orthopnea-likelely new onset CHF and needs further workup 3.Everyday smoker 4.Alcohol depedence Plan: C/w brioad Spectrum ABX ceftriaxone adn Azithromycine F/u CX Sputum CX if she gives sample autoimmune and infectious diseas workup which includes, JULIAN,ESR,Quantiferon assay,Mycoplasma Ig G and Ig M(patient had PPD done 1 year back which was negative) TTE no fluid [place]road on imaging and hence no indication lasix at this point. Smoking cessation counselling,she is willuing to quit DVT PPX at all time Full code Problem List: 1. Lung nodules 2. Bronchopneumonia Consult Acknowledgment - Thank you for your consult request. TEOFILO PLAZA MD 01/26/17 6428: Assessment/Plan Other Findings/Comments: Teofilo Moulton M.D. have examined this patient, reviewed available EMR data, personally reviewed images, discussed with resident/PA/TESTING CONSULTANT, discussed management plan with housestaff and nursing staff, discussed managment plan all of healthcare providers, discussed management plan with patient and/or family, agreed with resident/PA/TESTING CONSULTANT. The past history and parts of the chart have been autopopulated. Impression 51 year old woman * acute hypoxemic respiratory failure secondary to acute community acquired pneumonia with a broad differential of likely atypical pathogens, can also possibly represent RB-ILD - which is a smoking related respiratory bronchilitis * tobacco dependence * recent weight gain Plan - trc/nebs - sputum culture for c&s - recommend autoimmune screening with JULIAN - low probability of tb, not consistent with weight gain and a multilobar ground glass process without cavities, no hemoptysis, no exposures, hx of negative PPD per patient 1 year ago - check IgG/IgM - mycoplasma evaluation - aspergillus titers - sputum for eosinophilia - smoking cessation counseling - will need repeat imaging for resolution within a few weeks DVT prophylaxis at all times Consult Acknowledgment - Thank you for your consult request.
[2017-01-26 08:33] LABS: ABSOLUTE BASOPHIL COUNT 0 /CUMM (0.0-0.2); ABSOLUTE EOSINOPHIL COUNT 0 /CUMM (0.0-0.7); ABSOLUTE GRANULOCYTE CT 8.1 /CUMM (1.4-6.5); ABSOLUTE LYMPH COUNT 1.2 /CUMM (1.2-3.4); ABSOLUTE MONOCYTE COUNT 0.5 /CUMM (0.10-0.60); BASOPHIL % 0.4 % (0.0-2.0); EOSINOPHIL % 0.1 % (0-5); GRANULOCYTE % 81.8 % (42.2-75.2); MEAN CORPUSCULAR HGB 31.5 PG (27.0-31.0); MEAN CORPUSCULAR HGB CONC 33.3 G/DL (33.0-37.0); MEAN CORPUSCULAR VOLUME 94.5 FL (81.0-99.0); MEAN PLATELET VOLUME 9.4 FL (7.4-10.4); PLATELET COUNT 147 /CUMM (130-400); RBC DISTRIBUTION WIDTH 14.5 % (11.5-14.5); RED BLOOD CELL CT 4.23 /CUMM (4.20-5.40); WHITE BLOOD CELL COUNT 9.9 /CUMM (4.8-10.8)
--- NOTE | 2017-01-26 13:38 | PN- Housestaff ---
MARIN MARTINEZ,[facility] 01[facility]17 1338: Subjective Follow-up For: Pneumonia Edema Subjective: Saw patient at bedside this a.m. She says she did feel better than yesterday. She stated that she had to sleep in counseling entirely vertically upright secondary to orthopnea. No acute overnight events. However, she stated she was reluctant to stay back for further treatment tonight as she felt obligated to return to work. Patient was counseled extensively on severity of disease and need for prolonged treatment. She agreed to stay. Review of Systems Constitutional: Reports: weakness. Denies: chills, fever. EENTM: Reports: no symptoms. Cardiovascular: Reports: chest pain, edema, orthopena, peripheral edema. Denies: palpitations. Respiratory: Reports: cough, orthopnea, short of breath. Denies: hemoptysis, sputum production. Gastrointestinal: Denies: abdominal pain, bloating, constipation, diarrhea. Genitourinary: Reports: no symptoms. Musculoskeletal: Reports: no symptoms. Objective Last 24 Hrs of Vital Signs/I&O Vital Signs Date Time Temp Pulse Resp B/P Pulse O2 O2 Flow FiO2 Ox Delivery Rate 01/26 1429 97.5 87 20 122/70 94 Nasal 3.0L Cannula 01/26 1052 Nasal 3.0L Cannula 01/26 0800 95 Nasal 3.0L Cannula 01/26 0720 97.6 85 20 124/78 97 Nasal 4.0L Cannula 01/26 0000 Nasal 3.0L Cannula 01/25 2236 98.9 90 22 118/72 93 Nasal 4.0L Cannula 01/25 1826 95 Nasal 3.0L Cannula 01/25 1826 98.1 96 20 132/62 95 Nasal 3.0L Cannula 01/25 1757 98.0 01/25 1750 98.0 98 20 126/58 95 Nasal 3.0L Cannula 01/25 1654 94 Nasal 3.0L Cannula 01/25 1642 101.0 115 20 144/78 94 Nasal 3.0L Cannula 01/25 1641 101.3 01/25 1554 101.3 122 18 154/77 92 Room Air Intake & Output 01/26 1600 01/26 0800 04 0000 Intake Total 510 Output Total 400 Balance 510 -400 Intake, IV 30 Intake, Oral 480 Number 0 Bowel Movements Output, Urine 400 Patient 96.615 kg Weight Physical Exam General Appearance: Alert, Oriented X3, Cooperative, No Acute Distress Skin: No Significant Lesion HEENT: Atraumatic, PERRLA, EOMI Neck: Supple Cardiovascular: Regular Rate, Normal S1, Normal S2, No Murmurs Lungs: Crackles present bilaterally Abdomen: Soft, No Tenderness Neurological: Normal Speech Extremities: 2+ pitting edema bilaterally Current Medications: Current Medications Sig/Santa Start time Last Medication Dose Route Stop Time Status Admin Acetaminophen 650 MG Q4P PRN 01/25 1715 AC PO Acetaminophen 0 .STK-MED ONE 01/25 1633 DC IV Acetaminophen 1,000 MG ONCE ONE 01/25 1615 DC 01/25 N/A 1 UNIT IV 01/25 1629 1641 Albuterol Sulfate 2 PUF BID 01/26 2200 AC INH Albuterol Sulfate 3 ML ONCE ONE 01/25 1700 DC 01/25 INH 01/25 1701 1650 Azithromycin 500 MG 1700 01/26 1700 AC Sodium Chloride 250 ML IV Azithromycin 500 MG ONCE ONE 01/25 1700 DC 01/25 Sodium Chloride 250 ML IV 01/25 1759 1758 Benzocaine/Menthol 1 GINA Q2P PRN 01/26 1345 AC PO Ceftriaxone Sodium 1,000 MG 1700 01/26 1700 AC IV Ceftriaxone Sodium 0 .STK-MED ONE 01/25 1734 DC .ROUTE Ceftriaxone Sodium 1,000 MG ONCE ONE 01/25 1700 DC 01/25 IV 01/25 1701 1758 Enoxaparin Sodium 40 MG DAILY 01/25 2200 AC 01/26 SC 0920 Guaifenesin 10 ML .STK-MED ONE 01/26 0342 DC PO 01/26 0343 Guaifenesin 10 ML .STK-MED ONE 01/25 2239 DC PO 01/25 2240 Guaifenesin/Codeine 10 ML .STK-MED ONE 01/26 0343 DC Phosphate PO 01/26 0344 Guaifenesin/ 10 ML Q4P PRN 01/25 2145 AC 01/26 Dextromethorphan PO 1052 Hydromorphone HCl 0 .STK-MED ONE 01/25 1633 DC .ROUTE Hydromorphone HCl 1 MG ONCE ONE 01/25 1615 DC 01/25 IV 01/25 1616 1641 Ibuprofen 600 MG Q6P PRN 01/25 1715 CAN PO Indomethacin Sodium 25 MG TID 01/26 1000 AC 01/26 PO 1052 Influenza Virus 0.5 ML ONCE ONE 01/25 1930 DC Vaccine IM 01/25 193 Ipratropium Sat[place] 2.5 ML ONCE ONE 01/25 1700 DC 01/25 INH 01/25 170 1650 Ketorolac 30 MG .STK-MED ONE 01/25 2248 DC Tromethamine IM 01/25 2249 Ketorolac 15 MG Q6P PRN 01/25 171 AC 01/26 Tromethamine IV 0349 Magnesium Oxide 400 MG ONE ONE 01/25 2130 DC 01/25 PO 01/25 2131 2243 Methylprednisolone 0 .STK-MED ONE 01/25 1447 DC .ROUTE Morphine Sulfate 2 MG Q4P PRN 01/25 1715 DC IV Last 24 Hrs of Lab/Shaggy Results Last 24 Hrs of Labs/Mics: Laboratory Tests 01/26/17 1000: Lactic Acid 1.6, Aspergillus Antibody Pending 01/26/17 0735: Anion Gap 9, Estimated GFR > 60, BUN/Creatinine Ratio 23.3, Glucose 108 H, Total Bilirubin 0.3, Direct Bilirubin 0.3, AST 33, ALT 72 H, Alkaline Phosphatase 143 H, Total Protein 6.5, Albumin 3.6, Cortisol AM Sample 2.4 L, CBC w Diff NO MAN DIFF REQ, RBC 4.23, MCV 94.5, MCH 31.5 H, RDW 14.5, MPV 9.4, Gran % 81.8 H, Lymphocytes % 12.2 L, Monocytes % 5.5, Eosinophils % 0.1, Basophils % 0.4, Absolute Granulocytes 8.1 H, Absolute Lymphocytes 1.2, Absolute Monocytes 0.5, Absolute Eosinophils 0, Absolute Basophils 0, PUBS MCHC 33.3, ESR Westergren 25 H, JULIAN Titer Pending, Anti-Nuclear Antibody Pending 01/26/17 0600: Ref Lab Test Result Pending 01/25/172154: Lactic Acid 3.3 H 01/25/17 2155: Cortisol PM Sample 8.6 01/25/17 1658: Lactic Acid Cancelled Microbiology 01/26 0015 URINE ROUT: Legionella Antigen - COMP 01/26 0015 URINE ROUT: Streptococcus pneumoniae Antigen (M - COMP 01/25 1517 BLOOD: Blood Culture - RES 01/25 1502 BLOOD: Blood Culture - RES Assessment/Plan Assessment: This is a 50-year-old female past medical history unknown, comes in with chief complaint of worsening shortness of breath, chest pain and 100 pound weight gain in the past 1 year. Patient had evidence of opacities suggesting pneumonia on CAT scan, as such she was admitted to general medicine floor for treatment of pneumonia and further workup of generalized edema. PLAN Sepsis secondary to pneumonia: Patient came in with fever and tachycardia lactic acid max of 3.3 last night. Meets criteria for SIRS, given Ultracet on CAT scan meets criteria for sepsis. Currently being treated for community acquired pneumonia. * Continue ceftriaxone and azithromycin * Tylenol for fever * LRC * Trend lactic acid * Monitor blood pressure * Pulmonary consult appreciated Opacities seen on CT: There is concern for large peribronchial opacities and nodules read on CT. Concern for a acute bronchopneumonia versus tuberculosis versus non-tuberculosis mycobacterial infection. * AFB * JULIAN * Follow-up cultures * Aspergillus antibody * ESR * HIV * Sputum eosinophils * Mycobacterium antibody Generalized edema: Patient has 2+ edema in her bilateral lower extremities. She endorses 100 pound weight gain despite no change in her appetite over the past 12 months. Etiology currently(between cardiac, hepatic, renal origin. Given normal renal function we'll continue the source. Patient does have history of EtOH intake, possible cirrhosis leading to generalized edema. No evidence of ascites. Most likely her edema secondary to cardiac origin. She has no diagnosis of CHF. No echo on record. Follow-up with a charge master analyst. * Echocardiogram * Q waves seen on EKG during admission * Consider cardiology consult History of Etoh Intake: Patient states she drinks hard liquor 3-5 nights a week. Unsure of quantity. We will place on CIWA protocol as precaution Problem List: 1. Lung nodules 2. Bronchopneumonia Pain Ratin Pain Location: none Pain Goal: Remain pain free Pain Plan: none Tomorrow's Labs & Rationales: cbc bep DVT/Prophylaxis: pharmacological NATALI RDZ 01/26/17 1515: Attending MD Review Statement Attending Statement Attending MD Statement: examined this patient, discuss w/resident/PA/CONTINUOUS PROCESS ROTARY DRUM TANNER, agreed w/resident/PA/CONTINUOUS PROCESS ROTARY DRUM TANNER, discussed with family, reviewed EMR data (avail), discussed with nursing, discussed with case mgmt, reviewed images, amended to note Attending Assessment/Plan: Asessment: 1.Acute Hypoxiac Respiratory failure likley from CPNA 2.orthopnea 3.Everyday smoker 4.Alcohol depedence Plan: C/w broad Spectrum ABX ceftriaxone adn Azithromycine Pulmoanry consulted. f/u autoimmune and infectious diseas workup which includes, JULIAN,ESR,Quantiferon assay,Mycoplasma Ig G and Ig M(patient had PPD done 1 year back which was negative) ECHO pending. no fluid ovelroad on imaging and hence no indication lasix at this point. Smoking cessation counselling,she is willing to quit DVT PPX at all time Full code
--- NOTE | 2017-01-26 17:08 | ULTRASOUND REPORT ---
EXAMINATION: US ABDOMEN COMPLETE CLINICAL INFORMATION: Transaminitis. Evaluate for steatosis. COMPARISON: CTA of the chest dated 01/25/2017. TECHNIQUE: Real-time imaging of the abdominal viscera. FINDINGS: PANCREAS: The pancreatic body and portions of the head and tail are visualized and appear unremarkable. Remainder of the pancreas is obscured by overlying bowel gas. ABDOMINAL AORTA: The proximal segment is normal in caliber. INFERIOR VENA CAVA: Visualized portions are normal. LIVER: There is diffuse hepatic steatosis seen with increased echogenicity of the liver. The liver demonstrates normal size (18 cm long) and contour. No focal lesion or intrahepatic biliary duct dilatation. GALLBLADDER: Normal. The gallbladder is physiologically distended without evidence of stones, sludge, polyps, wall thickening or pericholecystic fluid. COMMON BILE DUCT: Normal in caliber measuring 0.4 cm in diameter. RIGHT KIDNEY: Normal. No hydronephrosis. No renal calculi or focal parenchymal lesions. The kidney measures 10.9 cm in maximum dimension. LEFT KIDNEY: Normal. No hydronephrosis. No renal calculi or focal parenchymal lesions. The kidney measures 10.1 cm in maximum dimension. SPLEEN: Normal. The spleen measures 10.9 cm in maximum dimension. FREE FLUID: None. IMPRESSION: 1. Hepatic steatosis. 2. Incomplete view of the pancreas. Visualized portions unremarkable. 3. Otherwise unremarkable study.
--- NOTE | 2017-01-27 00:19 | NUR ---
ALERT AND ORIENTED X 3. VITAL SIGNS STABLE. DENIES CHEST PAIN. + PULSES ON 3L OXYGEN VIA NASAL CANNULA. MEDICATION GIVEN FOR PAIN. PATIENT RESTING AT THIS TIME. WILL CONTINUE TO MONITOR
[2017-01-27 06:44] VITALS: BP 120/86
[2017-01-27 08:04] LABS: ABSOLUTE BASOPHIL COUNT 0 /CUMM (0.0-0.2); ABSOLUTE EOSINOPHIL COUNT 0.2 /CUMM (0.0-0.7); ABSOLUTE GRANULOCYTE CT 3.5 /CUMM (1.4-6.5); ABSOLUTE MONOCYTE COUNT 0.3 /CUMM (0.10-0.60); BASOPHIL % 0.4 % (0.0-2.0); EOSINOPHIL % 3.3 % (0-5); HEMATOCRIT 38.3 % (37-47); MEAN CORPUSCULAR HGB 31.5 PG (27.0-31.0); MEAN CORPUSCULAR HGB CONC 33.3 G/DL (33.0-37.0); MEAN CORPUSCULAR VOLUME 94.7 FL (81.0-99.0); MEAN PLATELET VOLUME 9.5 FL (7.4-10.4); PLATELET COUNT 152 /CUMM (130-400); RBC DISTRIBUTION WIDTH 14.7 % (11.5-14.5); RED BLOOD CELL CT 4.05 /CUMM (4.20-5.40); WHITE BLOOD CELL COUNT 6.1 /CUMM (4.8-10.8)
--- NOTE | 2017-01-27 08:58 | PN- Housestaff ---
MARIN MARTINEZ,CEM 01/27/17 0858: Subjective Follow-up For: pna lb gain transamanitis Subjective: Saw patient at bedside this a.m. She stated that the pleuritic pain in her back seem to be getting worse. However she stated that she did seem to be able to breathe better she was able to lay down in bed in a semi-reclining position whereas previously she stated that she felt like she was "choking and dying." Her orthopnea has decreased from 6 to 4 pillows. Review of Systems Constitutional: Denies: chills, weakness. EENTM: Reports: no symptoms. Cardiovascular: Reports: no symptoms. Respiratory: Reports: cough, orthopnea, short of breath, sputum production. Denies: hemoptysis, wheezing. Gastrointestinal: Reports: no symptoms. Genitourinary: Reports: no symptoms. Musculoskeletal: Reports: no symptoms. Objective Last 24 Hrs of Vital Signs/I&O Vital Signs Date Time Temp Pulse Resp B/P B/P Pulse O2 O2 Flow FiO2 Mean Ox Delivery Rate 01/27 0644 98.2 91 20 120/86 97 Nasal 3.0L Cannula 01/27 0000 Nasal 3.0L Cannula 01/26 2214 97.6 80 19 100/70 96 Nasal 3.0L Cannula 01/26 2200 97.6 80 19 100/70 01/26 2000 97.6 78 18 113/70 01/26 1830 97.6 78 18 113/70 96 Nasal 3.0L Cannula 01/26 1600 Nasal 3.0L Cannula 01/26 1600 97.5 87 20 122/70 01/26 1429 97.5 87 20 122/70 94 Nasal 3.0L Cannula Intake & Output 01/27 1600 01/27 0800 01/27 0000 Intake Total 200 300 Output Total 550 Balance -350 300 Intake, Oral 200 300 Number 1 Bowel Movements Output, Urine 550 Physical Exam General Appearance: Alert, Oriented X3, Cooperative, No Acute Distress Skin: No Significant Lesion HEENT: Atraumatic, PERRLA, EOMI, Mucous Membr. moist/pink Neck: Supple Cardiovascular: Regular Rate, Normal S1, Normal S2 Lungs: slight crackles appreciated particularly in r. lung field Abdomen: Soft, No Tenderness Neurological: Normal Speech Assessment/Plan Assessment: This is a 50-year-old female past medical history unknown, comes in with chief complaint of worsening shortness of breath, chest pain and 100 pound weight gain in the past 1 year. Patient had evidence of opacities suggesting pneumonia on CAT scan, as such she was admitted to general medicine floor for treatment of pneumonia and further workup of lb gain and edema. PLAN Sepsis secondary to pneumonia: Patient came in with fever and tachycardia lactic acid max of 3.3 on admission; mets criteria for SIRS, given evidencee of PNA on CAT scan she was + for sepsis. Currently, being treated for community acquired pneumonia. There is consideration for atypical pna given ground glass and no focal consolidation. She is afebrile; with WBC 6. Negative legionella and s.pneumo. * Continue ceftriaxone and azithromycin * Tylenol for fever * LRC * Monitor blood pressure * Pulmonary consult appreciated Opacities seen on CT: There is concern for large peribronchial opacities and nodules read on CT. Concern for a acute bronchopneumonia versus tuberculosis versus non-tuberculosis mycobacterial infection. * AFB * JULIAN * Follow-up cultures * Aspergillus antibody * ESR * HIV * Sputum eosinophils Generalized edema: Patient has 2+ edema in her bilateral lower extremities. She endorses almost 100 pound weight gain despite no change in her appetite over the past 12 months. Etiology currently between cardiac, hepatic, renal origin. Given normal renal function we'll continue the source. Patient does have history of EtOH intake, possible cirrhosis leading to generalized edema. No evidence of ascites. Possibly her edema secondary to cardiac origin. She has no diagnosis of CHF. No echo on record. BNP normal. Possible valvular etiology?? There is also concern for auto-immune/inflammatory pathology. * Echocardiogram * Q waves seen on EKG during admission * Consider cardiology consult * JULIAN * JEFF antibody History of Etoh Intake: Patient states she drinks hard liquor 3-5 nights a week. Unsure of quantity. We will place on CIWA protocol as precaution * CIWA; currently not scoring Problem List: 1. Lung nodules 2. Bronchopneumonia Pain Ratin Pain Location: none Pain Goal: Remain pain free Pain Plan: none Tomorrow's Labs & Rationales: none NATALI RDZ 01/27/17 1430: Attending MD Review Statement Attending Statement Attending MD Statement: examined this patient, discuss w/resident/PA/ENVIRONMENTAL HEALTH INSPECTOR, agreed w/resident/PA/ENVIRONMENTAL HEALTH INSPECTOR, discussed with family, reviewed EMR data (avail), discussed with nursing, discussed with case mgmt, reviewed images, amended to note Attending Assessment/Plan: Asessment: 1.Acute Hypoxiac Respiratory failure likley from CPNA 2.orthopnea 3.Everyday smoker 4.Alcohol depedence Plan: C/w broad Spectrum ABX ceftriaxone adn Azithromycine Pulmoanry consulted. f/u autoimmune and infectious diseas workup which includes, JULIAN, ESR 23, Quantiferon assay,Mycoplasma Ig G and Ig M. ECHO pending. USG liver with no significant abnormality. no fluid ovelroad on imaging and hence no indication lasix at this point. Smoking cessation counselling,she is willing to quit DVT PPX at all time Full code
--- NOTE | 2017-01-27 10:57 | PN- Pulmonary ---
Subjective HPI/Critical Care Issues: pt seen and examined some back pain dyspnea improved feels more comfortable from pulmonary perspective no n/v/d/c Objective Current Medications: Current Medications Sig/Santa Start time Last Medication Dose Route Stop Time Status Admin Acetaminophen 650 MG .STK-MED ONE 01/27 0146 DC PO 01/27 0147 Acetaminophen 650 MG Q4P PRN 01/25 1715 AC 01/27 PO 0145 Albuterol Sulfate 2 PUF BID 01/26 2200 AC 01/27 INH 1009 Azithromycin 500 MG 17001/26 1700 AC 01/26 Sodium Chloride 250 ML IV 1711 Benzocaine/Menthol 1 GINA Q2P PRN 01/26 1345 AC PO Ceftriaxone Sodium 1,000 MG 01/26 1700 AC 01/26 IV 1712 Enoxaparin Sodium 40 MG DAILY 01/25 2200 AC 01/27 SC 1008 Guaifenesin/ 10 ML Q4P PRN 01/25 2145 AC 01/27 Dextromethorphan PO 0800 Indomethacin Sodium 25 MG TID 01/26 1000 AC 01/27 PO 1008 Ketorolac 15 MG Q6P PRN 01/25 1715 AC 01/27 Tromethamine IV 0800 Tramadol HCl 50 MG Q6 01/27 1200 AC PO Vital Signs & I&O Last 24 Hrs of Vitals and I&O: Vital Signs Date Time Temp Pulse Resp B/P B/P Pulse O2 O2 Flow FiO2 Mean Ox Delivery Rate 01/27 0644 98.2 91 20 120/86 97 Nasal 3.0L Cannula 01/27 0000 Nasal 3.0L Cannula 01/26 2214 97.6 80 19 100/70 96 Nasal 3.0L Cannula 01/26 2200 97.6 80 19 100/70 01/26 2000 97.6 78 18 113/70 01/26 1830 97.6 78 18 113/70 96 Nasal 3.0L Cannula 01/26 1600 Nasal 3.0L Cannula 01/26 1600 97.5 87 20 122/70 01/26 1429 97.5 87 20 122/70 94 Nasal 3.0L Cannula Intake & Output 01/27 1600 01/27 0800 01/27 0000 Intake Total 200 300 Output Total 550 Balance -350 300 Intake, Oral 200 300 Number 1 Bowel Movements Output, Urine 550 Exam Other Physical Findings: gen awake and alert heent ncat cvs s1, s2 lungs rhonchi abd soft bs+ ext without edema Results Last 24 Hrs of Lab Results: Laboratory Tests 01/27/17 1025: TB Test (QFT) Mitogen Pending, TB Test Mitogen - Nil Pending, TB Test Antigen - Nil Pending, TB Test (QFT) Interp Pending 01/27/17 0630: Anion Gap 7, Estimated GFR > 60, BUN/Creatinine Ratio 24.3, Total Bilirubin 0.3, Direct Bilirubin 0.3, AST 33, ALT 60 H, Alkaline Phosphatase 114, Total Protein 5.6 L, Albumin 2.9 L, CBC w Diff NO MAN DIFF REQ, RBC 4.05 L, MCV 94.7, MCH 31.5 H, RDW 14.7 H, MPV 9.5, Gran % 57.0, Lymphocytes % 33.6, Monocytes % 5.7, Eosinophils % 3.3, Basophils % 0.4, Absolute Granulocytes 3.5, Absolute Lymphocytes 2.0, Absolute Monocytes 0.3, Absolute Eosinophils 0.2, Absolute Basophils 0, PUBS MCHC 33.3 01/27/17 0600: [id number] Pending Impression/Plan Impression/Plan Impression/Plan: Impression 51 year old woman * acute hypoxemic respiratory failure secondary to acute community acquired pneumonia with a broad differential of likely atypical pathogens, can also possibly represent RB-ILD - which is a smoking related respiratory bronchilitis * tobacco dependence * recent weight gain Plan - incentive spirometry - adequate pain control - trc/nebs - sputum culture for c&s - f/u autoimmune screening with JULIAN - low probability of tb, not consistent with weight gain and a multilobar ground glass process without cavities, no hemoptysis, no exposures, hx of negative PPD per patient 1 year ago - check IgG/IgM - mycoplasma evaluation - aspergillus titers - sputum for eosinophils - smoking cessation counseling - will need repeat imaging for resolution within a few weeks DVT prophylaxis at all times
[2017-01-27 14:37] VITALS: BP 116/80
--- NOTE | 2017-01-27 17:01 | RADIOLOGY REPORT ---
EXAMINATION: XR CHEST CLINICAL INFORMATION: Atypical pneumonia with possible bronchiolitis. Worsening pleuritic pain. Evaluate for effusion. COMPARISON: Chest x-ray dated 01/25/2017. TECHNIQUE: 2 views of the chest were obtained. FINDINGS: The cardiomediastinal silhouette is within normal limits in size. Low lung volumes are seen with bibasilar opacities, possibly due to atelectasis or subtle pneumonia. No definite pleural effusion is seen though evaluation is limited on these films. No pneumothorax is seen. Bony structures grossly unremarkable. IMPRESSION: Low lung volumes with bibasilar opacities, possibly due to atelectasis or pneumonia. No significant pleural effusion.
--- NOTE | 2017-01-27 21:00 | NUR ---
RESTING SP02 NC 3L 96%, HR 86. AMBULATING SP02 ON 3L 94%, HR 98 RESTING SP02 ON RA 93%, HR 87. AMBULATING SP02 ON RA 91%, HR 100
[2017-01-27 22:24] VITALS: BP 118/70
[2017-01-28 07:00] VITALS: BP 132/82
[2017-01-28] MEDS ORDERED: LEVAQUIN500 M1 PO (07:40)
[2017-01-28] MEDS ORDERED: GUAIFENESIN DM S5 ML PO (07:41)
[2017-01-28] MEDS ORDERED: PERCOCET 5-3251 EACH PO (07:41)
--- NOTE | 2017-01-28 07:43 | Patient Discharge Instructions ---
Discharge Instructions General Discharge Information You were seen/treated for: SHORTNESS OF BREATH AND DIFFCIULTY BREATHING PNEUMONIA Special Instructions: PLEASE F/U WITH DR PLAZA IN 1 WEEK OF DISCHARGE PLEASE GET A REPEAT CXR IN 6 WEEKS PLEASE SET AN APPOINTMENT WITH A PCP PLEASE FOLLOW UP WITH FREIGHT RATE ANALYST REGARDING FINDINGS ON YOUR CAT scan Follow up with PCP regarding echo Diet Continue normal diet: No Recommended Diet: Heart Healthy Activity Activity Self Limited: Yes Acute Coronary Syndrome Inclusion Criteria At DC or during hospital stay patient has or had the following: ACS DIAGNOSIS No Discharge Core Measures Meds if any: Prescribed or Continued at Discharge Meds if any: NOT Prescribed or Continued at Discharge Congestive Heart Failure Inclusion Criteria At DC or during hospital stay patient has or had the following: CHF DIAGNOSIS No Discharge Core Measures Meds if any: Prescribed or Continued at Discharge Meds if any: NOT Prescribed or Continued at Discharge Cerebrovascular accident Inclusion Criteria At DC or during hospital stay patient has or had the following: CVA/TIA Diagnosis No Discharge Core Measures Meds if any: Prescribed or Continued at Discharge Meds if any: NOT Prescribed or Continued at Discharge Venous thromboembolism Inclusion Criteria VTE Diagnosis No VTE Type NONE VTE Confirmed by (Test) NONE Discharge Core Measures - Per Current guidelines, there needs to be overlap - treatment for the first 5 days of Warfarin therapy. - If discharged on Warfarin prior to 5 days of - overlap therapy, the patient will need to be - assessed for post discharge needs including - *Post discharge parental anticoagulation - *Warfarin and/or parental anticoagulation education - *Follow up date to check INR post discharge At least 5 days overlap therapy as Inpatient No Meds if any: Prescribed or Continued at Discharge Note: Overlap Therapy is Warfarin and Anticoagulant Meds if any: NOT Prescribed or Continued at Discharge
[2017-01-28] MEDS ORDERED: VENTOLIN HFA18 GM INH (07:46)
--- NOTE | 2017-01-28 08:05 | NUR ---
PT UPSET THIS AM. SAYIING "JOVANNY BEEN AWAKE ALL NIGHT,COUGHING YOU PEOPLE ARE IGNORING ME". I'M IN PAIN. LAST PM PT WAS MEDICATED WITH PEROCET AND ROBITUSSIN. AT THAT TIME I EXPLIANED THAT I WOULD BE CHECKING ON HER DURING ROUNDING BUT IF SHE WAS ALSEEP I WOULD NOT DISTURB HER. I ALSO TOLD HER THAT SHE COULD HAVE PAIN MEDICATION AT 0400 AND THAT IF SHE NEEDED ANYTHING TO RING HER CALL T[facility]. DURING THE NIGHT ROUNDS SHE WAS FOUND TO BE ALSEEP EXCEPT FOR ONE TIME WHEN SHE TOLD THE [facility] SHE WAS IN PAIN. I THEN WENT TO HER ROOM TO FIND HER ASLEEP. SHE DID NOT RING THE CALL TAYLOR ALL SHIFT. I MEDICATED HER AT 0700 WITH PEROCET AND ROBITUSSIN.
--- NOTE | 2017-01-28 08:59 | PN- Housestaff ---
MARIN MARTINEZ,CEM 01/28/17 0836: Subjective Follow-up For: PNA Transamanitis Subjective: Saw pt at bedside. She stated that she felt worse. No acute overnight events. Attempt to wean pt off O2 not successful. She stated that she coughed all night and did not sleep well. Continues to feel SOB. Afebrile. Pt insists that she has to leave today due to social issues. She states that she wants to stay but is unable to given her job situation. She has been educated several times regarding dangers of AMA disposition. Her pneumonia has not resolved, she still requires 3l NC, she would not be safe for dc. Review of Systems Constitutional: Denies: chills, fever. EENTM: Reports: no symptoms. Cardiovascular: Denies: chest pain, palpitations. Respiratory: Reports: cough, orthopnea, short of breath, sputum production. Gastrointestinal: Denies: abdominal pain, constipation, diarrhea, nausea, vomiting. Genitourinary: Reports: no symptoms. Musculoskeletal: Reports: no symptoms. Objective Last 24 Hrs of Vital Signs/I&O Vital Signs Date Time Temp Pulse Resp B/P B/P Pulse O2 O2 Flow FiO2 Mean Ox Delivery Rate 01/28 0700 97.9 90 20 132/82 93 Nasal 3.0L Cannula 01/28 0000 91 Room Air 01/27 2224 97.4 90 18 118/70 98 01/27 1437 97.6 78 20 116/80 98 Nasal 3.0L Cannula Physical Exam General Appearance: Alert, Oriented X3, Cooperative, No Acute Distress Skin: No Rashes, No Significant Lesion HEENT: Atraumatic, PERRLA, EOMI Neck: Supple Cardiovascular: Regular Rate, Normal S1, Normal S2, No Murmurs Lungs: pulmonary exam worse than yesterday. No with rubs and rhonchi. Particularly worse in right field. Abdomen: Soft, No Tenderness Neurological: Normal Speech Extremities: 2+ EDEMA present bilat Current Medications: Current Medications Sig/Santa Start time Last Medication Dose Route Stop Time Status Admin Acetaminophen 650 MG Q4P PRN 01/25 1715 AC 01/27 PO 0145 Albuterol Sulfate 2 PUF BID 01/26 2200 AC 01/27 INH 2134 Azithromycin 500 MG 1700 01/26 1700 AC 01/27 Sodium Chloride 250 ML IV 1711 Benzocaine/Menthol 1 GINA Q2P PRN 01/26 1345 AC PO Ceftriaxone Sodium 1,000 MG 1700 01/26 1700 AC 01/27 IV 1711 Enoxaparin Sodium 40 MG DAILY 01/25 2200 AC 01/27 SC 1008 Guaifenesin 10 ML .STK-MED ONE 01/27 2242 DC PO 01/27 2243 Guaifenesin/ 10 ML Q4P PRN 01/25 2145 AC 01/28 Dextromethorphan PO 0741 Indomethacin Sodium 25 MG TID 01/26 1000 AC 01/27 PO 2133 Ketorolac 15 MG Q6P PRN 01/25 1715 AC 01/27 Tromethamine IV 0800 Oxycodone/ 1 TAB Q6P PRN 01/27 1345 AC 01/28 Acetaminophen PO 0740 Patient Medication 1 ED .STK-MED ONE 01/27 1355 DC Teaching ED 01/27 1356 Tramadol HCl 50 MG Q6 01/27 1200 DC 01/27 PO 1126 Last 24 Hrs of Lab/Shaggy Results Last 24 Hrs of Labs/Mics: Laboratory Tests 01/27/17 1025: TB Test (QFT) Mitogen Pending, TB Test Mitogen - Nil Pending, TB Test Antigen - Nil Pending, TB Test (QFT) Interp Pending Assessment/Plan Assessment: This is a 50-year-old female past medical history unknown, comes in with chief complaint of worsening shortness of breath, chest pain and 100 pound weight gain in the past 1 year. Patient had evidence of opacities suggesting pneumonia on CAT scan, as such she was admitted to general medicine floor for treatment of pneumonia and further workup of lb gain and edema. PLAN Sepsis secondary to pneumonia: Patient came in with fever and tachycardia lactic acid max of 3.3 on admission; mets criteria for SIRS, given evidencee of PNA on CAT scan she was + for sepsis. Currently, being treated for community acquired pneumonia. There is consideration for atypical pna given ground glass and no focal consolidation. She is afebrile; with -ve white count. Negative legionella and s.pneumo. * Continue ceftriaxone and azithromycin--> If AMA D/C will convert to levoquin * Tylenol for fever * LRC * Monitor blood pressure * Pulmonary consult appreciated * O2 tank provided for outpatient use as pt still requires 3l * Follow up appt at new PCP(Dr. Marcano's info provided) * Home nursing in interim Opacities seen on CT: There is concern for large peribronchial opacities and nodules read on CT. Concern for a acute bronchopneumonia versus tuberculosis versus non-tuberculosis mycobacterial infection. HIV- Neg * AFB * JULIAN * Follow-up cultures * Aspergillus antibody * ESR * Sputum eosinophils * Follow up results out patient. Generalized edema: Patient has 2+ edema in her bilateral lower extremities. She endorses almost 100 pound weight gain despite no change in her appetite over the past 12 months. Etiology currently between cardiac, hepatic, renal origin. Given normal renal function we'll continue the source. Patient does have history of EtOH intake, possible cirrhosis leading to generalized edema. No evidence of ascites. Possibly her edema secondary to cardiac origin. She has no diagnosis of CHF. No echo on record. BNP normal. Possible valvular etiology?? There is also concern for auto-immune/inflammatory pathology. * Echocardiogram * Q waves seen on EKG during admission * Consider cardiology consult * JULIAN * JEFF antibody History of Etoh Intake: Patient states she drinks hard liquor 3-5 nights a week. Unsure of quantity. We will place on CIWA protocol as precaution * CIWA; currently not scoring Problem List: 1. Lung nodules 2. Bronchopneumonia Pain Ratin Pain Location: none Pain Goal: Remain pain free Pain Plan: none Tomorrow's Labs & Rationales: cbc bep NATALI RDZ 01/28/17 1052: Attending MD Review Statement Attending Statement Attending MD Statement: examined this patient, discuss w/resident/PA/CASE MANAGEMENT DIRECTOR, agreed w/resident/PA/CASE MANAGEMENT DIRECTOR, discussed with family, reviewed EMR data (avail), discussed with nursing, discussed with case mgmt, reviewed images, amended to note Attending Assessment/Plan: Asessment: 1.Acute Hypoxiac Respiratory failure likley from CPNA 2.orthopnea 3.Everyday smoker 4.Alcohol depedence Plan: C/w broad Spectrum ABX ceftriaxone adn Azithromycine changed to PO at discharge. Pulmonary consulted. f/u o/p Dr Arellano. f/u autoimmune and infectious disease workup which includes, JULIAN, ESR 23, Quantiferon assay, Mycoplasma IgG and IgM. ECHO o/p. USG liver with no significant abnormality. no fluid ovelroad on imaging and hence no indication lasix at this point. Smoking cessation counselling,she is willing to quit DVT PPX at all time Full code Patient with acceptable oxygen requirements at discharge. Patient wants to go home and discharged in stable condition cleared by pulmonary. In case her clinical condition worsens she is instructed to call 911 or come to ER immediately.
--- NOTE | 2017-01-28 09:42 | Discharge Summary ---
Visit Information Visit Dates Admission Date: 01/25/17 Discharge Date: 01/28/2017 Hospital Course Course Attending Physician: NATALI RDZ MD Primary Care Physician: PATIENT HAS NO PRIMARY CARE DR Consulting Request: Consulting Specialty: Pulmonary Disease Hospital Course: This is a 50-year-old female past medical history unknown, comes in with chief complaint of worsening shortness of breath, chest pain and 100 pound weight gain in the past 1 year. Patient had evidence of opacities suggesting pneumonia on CAT scan, as such she was admitted to general medicine floor for treatment of pneumonia and further workup of lb gain and edema. Pt was in process of treatment when she insisted that she had to leave due to social circumstances ( job problems at [employer]). ON DISCHARGE PT: still on 3l NC, unable to wean, desats to 90 on room air. Afebrile, no white count. Clinical pulm exam worse. Pt has rhonchi which were not present on admission. Cxr -ve for effusion. REQUIRES CLOSE FOLLOW UP! Pt seen for following problems inpatient: Sepsis secondary to pneumonia: Patient came in with fever and tachycardia lactic acid max of 3.3 on admission; mets criteria for SIRS, given evidencee of PNA on CAT scan she was + for sepsis. Currently, being treated for community acquired pneumonia. There is consideration for atypical pna given ground glass and no focal consolidation. She is afebrile; with -ve white count. Negative legionella and s.pneumo. Pulmonary consulted and pt suggested to follow up outpatient. * Continue ceftriaxone and azithromycin--> oN D/C convert to levoquin for total 14 days * Tylenol for fever * Pulmonary consult appreciated * O2 tank provided for outpatient use as pt still requires 3l * Follow up appt at new PCP(Dr. Marcano's info provided) * Home nursing in interim Opacities seen on CT: There is concern for large peribronchial opacities and nodules read on CT. Concern for a acute bronchopneumonia versus tuberculosis versus non-tuberculosis mycobacterial infection. HIV- Neg. PENDING THE FOLLOWING LABS. REQUIRES FOLLOW UP! * AFB * JULIAN * Follow-up cultures * Aspergillus antibody * ESR * Sputum eosinophils Generalized edema: Patient has 2+ edema in her bilateral lower extremities. She endorses almost 100 pound weight gain despite no change in her appetite over the past 12 months. Etiology currently between cardiac, hepatic, renal origin. Given normal renal function we'll continue the source. Patient does have history of EtOH intake, possible cirrhosis leading to generalized edema. No evidence of ascites. Possibly her edema secondary to cardiac origin. She has no diagnosis of CHF. No echo on record. BNP normal. Possible valvular etiology?? There is also concern for auto-immune/inflammatory pathology. * Echocardiogram READ PENDING * Q waves seen on EKG during admission * JULIAN * Alpna 1 anti-trypsin antibody History of Etoh Intake: Patient states she drinks hard liquor 3-5 nights a week. Unsure of quantity. We placed on CIWA protocol as precaution. Did not require any ativan in patient. Came in with mild transamanitis. Largely resolved by d/c. Pt educated not to drink etoh. * Follow up LFT on out patient basis Allergies: Coded Allergies: Penicillins (Intermediate, HIVES 01/25/17) Disposition Summary Disposition Principal Diagnosis: CAP Additional Diagnosis: TRANSAMANITIS Discharge Disposition: home health services Discharge Instructions General Discharge Information Code Status: Full Code Patient's Diet: as tolerated Patient's Activity: as tolerated Follow-Up Instructions/Appts: see above Medications at Discharge Discharge Medications: Start taking the following new medications: Guaifenesin/Dextromethorphan (Guaifenesin Dm Syrup) 100 MG-10 MG/5 ML SYRUP 10 Milliliters ORAL EVERY 4 HOURS NEEDED as needed for COUGH Qty = 3 No Refills Comments: LAST GIVEN 01/28/17 @ 0730 Albuterol Sulfate (Ventolin Hfa) 90 MCG HFA.AER.AD 2 Puff Inhale through mouth TWICE DAILY Qty = 3 No Refills Comments: LAST GIVEN 01/28/17 @ 0900 Levofloxacin (Levaquin) 500 MG TABLET 1 Tablet ORAL DAILY Qty = 11 No Refills Comments: NOT GIVEN IN HOSPITAL Oxycodone HCl/Acetaminophen (Percocet 5-325 MG Tablet) 5 MG-325 MG TABLET 1 Tablet ORAL TWICE DAILY Qty = 10 No Refills Comments: LAST GIVEN 01/28/17 @ 0730 Copies To: DUSTIN MARTINEZ,KEVEN
--- NOTE | 2017-01-28 11:30 | PN- Pulmonary ---
Subjective HPI/Critical Care Issues: pt seen and examined requires exertional o2 for now anticipating dc feels much better pain better controlled Objective Current Medications: Current Medications Sig/Santa Start time Last Medication Dose Route Stop Time Status Admin Acetaminophen 650 MG Q4P PRN 01/25 1715 DCD 01/27 PO 0145 Albuterol Sulfate 2 PUF BID 01/26 2200 DCD 01/28 INH 0907 Azithromycin 500 MG 1700 01/26 1700 DCD 01/27 Sodium Chloride 250 ML IV 1711 Benzocaine/Menthol 1 GINA Q2P PRN 01/26 1345 DCD PO Ceftriaxone Sodium 1,000 MG 1700 01/26 1700 DCD 01/27 IV 1711 Enoxaparin Sodium 40 MG DAILY 01/25 2200 DCD 01/28 SC 0905 Guaifenesin 10 ML .STK-MED ONE 01/27 2242 DC PO 01/27 2243 Guaifenesin/ 10 ML Q4P PRN 01/25 2145 DCD 01/28 Dextromethorphan PO 0741 Indomethacin Sodium 25 MG TID 01/26 1000 DCD 01/28 PO 0905 Ketorolac 15 MG Q6P PRN 01/25 1715 DCD 01/27 Tromethamine IV 0800 Oxycodone/ 1 TAB Q6P PRN 01/27 1345 DCD 01/28 Acetaminophen PO 0740 Patient Medication 1 ED .STK-MED ONE 01/27 1355 DC Teaching ED 01/27 1356 Tramadol HCl 50 MG Q6 01/27 1200 DC 01/27 PO 1126 Vital Signs & I&O Last 24 Hrs of Vitals and I&O: Vital Signs Date Time Temp Pulse Resp B/P B/P Pulse O2 O2 Flow FiO2 Mean Ox Delivery Rate 01/28 0806 91 Room Air 01/28 0805 87 93 Room Air 01/28 0800 93 Nasal 3.0L Cannula 01/28 0800 98 94 Nasal 3.0L Cannula 01/28 0800 96 Nasal 3.0L Cannula 01/28 0700 97.9 90 20 132/82 93 Nasal 3.0L Cannula 01/28 0000 91 Room Air 01/27 2224 97.4 90 18 118/70 98 01/27 1437 97.6 78 20 116/80 98 Nasal 3.0L Cannula Intake & Output 01/28 1600 04/20 0800 01/28 0000 Intake Total 500 Output Total Balance 500 Intake, IV 0 Intake, Oral 500 Exam Other Physical Findings: gen awake and alert heent ncat cvs s1, s2 lungs rhonchi abd soft bs+ ext without edema Impression/Plan Impression/Plan Impression/Plan: Impression 51 year old woman * improved acute hypoxemic respiratory failure secondary to acute community acquired pneumonia with a broad differential of likely atypical pathogens, can also possibly represent RB-ILD - which is a smoking related respiratory bronchilitis * tobacco dependence * recent weight gain Plan - incentive spirometry - adequate pain control - f/u autoimmune screening with JULIAN - low probability of tb, not consistent with weight gain and a multilobar ground glass process without cavities, no hemoptysis, no exposures, hx of negative PPD per patient 1 year ago - check IgG/IgM - mycoplasma evaluation - aspergillus titers - sputum for eosinophils - smoking cessation counseling - will need repeat imaging for resolution within a few weeks DVT prophylaxis at all times DC planning and f/u in office with myself
--- NOTE | 2017-01-28 12:25 | ECHOCARDIOGRAM REPORT ---
CURTIS BORGES Age: 51 : 1965 Gender: F Exam Date: 01/27/2017 19:18 Exam Location: [address] [place] [address] Ht (in): 63 Wt (lb): 212 BSA: 2.11 BP: 124 / 78 Ordering Physician: ROSMERY VÁZQUEZ MD Referring Physician: ROSMERY VÁZQUEZ MD Technologist: Dionne Alas PHILLIP Room Number: [id number] Indications: AFIB/FLUTTER Rhythm: Sinus Technical Quality: Good FINDINGS Left Ventricle Normal left ventricular size, wall thickness and systolic function with no obvious regional wall motion abnormalities. Normal left ventricular diastolic filling pattern for age. The ejection fraction is visually estimated at >65 %. Right Ventricle The right ventricle is normal in size and function. Right Atrium The right atrium is normal in size. Left Atrium The left atrium is normal in size. The interatrial septum is intact. Mitral Valve The mitral valve is normal in structure and function. There is mild mitral regurgitation. Aortic Valve Structurally normal aortic valve without significant sclerosis or stenosis. There is no aortic regurgitation. Tricuspid Valve The tricuspid valve is normal in structure and function. There is mild tricuspid regurgitation. Pulmonary artery systolic pressure is upper normal. Pulmonic Valve Structurally normal pulmonic valve. There is no pulmonic regurgitation. Pericardium Normal pericardium without effusion. No pleural effusion. Great Vessels Normal aortic root dimension. The aortic arch and great vessels are well seen and are normal. CONCLUSIONS No significant chamber abnormalities. No significant valve abnormalities. Normal transthoracic echocardiogram. Physiologic valvular regurgitation. Pulmonary artery systolic pressure is upper normal. Jeremy Floyd M.D. (Electronically Signed) Final Date: 28 January 2017 12:25 MEASUREMENTS (Male / Female) Normal Values 2D ECHO LV Diastolic Diameter PLAX 4.1 cm 4.2 - 5.9 / 3.9 - 5.3 cm LV Systolic Diameter PLAX 2.8 cm 2.1 - 4.0 cm LV Fractional Shortening PLAX 31.7 % 25 - 46 % LV Ejection Fraction 2D Teich 60.2 % IVS Diastolic Thickness 0.6 cm LVPW Diastolic Thickness 1.2 cm LV Relative Wall Thickness 0.4 RV Internal Dim ED PLAX 2.8 cm 1.9 - 3.8 cm LVOT Diameter 2.0 cm Aortic Root Diameter 2.7 cm LA Systolic Diameter LX 3.9 cm 3.0 - 4.0 / 2.7 - 3.8 cm LA Volume 38.0 cm 18 - 58 / 22 - 52 cm Ascending Aorta Diameter 2.9 cm DOPPLER AV Peak Velocity 182.0 cm/s AV Peak Gradient 13.2 mmHg AV Mean Velocity 124.0 cm/s AV Mean Gradient 7.0 mmHg AV Velocity Time Integral 36.6 cm LVOT Peak Velocity 102.0 cm/s LVOT Peak Gradient 4.2 mmHg LVOT Mean Velocity 70.5 cm/s LVOT Mean Gradient 2.0 mmHg LVOT Velocity Time Integral 22.7 cm LVOT Stroke Volume 71.3 cm AV Area Cont Eq vti 1.9 cm AV Area Cont Eq pk 1.8 cm MV Peak Velocity 122.0 cm/s MV Peak Gradient 6.0 mmHg MV Mean Velocity 71.1 cm/s MV Mean Gradient 2.0 mmHg Mitral E Point Velocity 93.8 cm/s Mitral A Point Velocity 82.9 cm/s Mitral E to A Ratio 1.1 MV PHT Velocity 123.0 cm/s MV Deceleration [place] 530.0 cm/s MV Pressure Half Time 69.6 ms MV Area PHT 3.2 cm MV Deceleration Time 224.0 ms TR Peak Velocity 264.0 cm/s TR Peak Gradient 27.9 mmHg Right Atrial Pressure 5.0 mmHg Pulmonary Artery Systolic Pressu 32.9 mmHg Right Ventricular Systolic Press 32.9 mmHg PV Peak Velocity 110.0 cm/s PV Peak Gradient 4.8 mmHg PV Mean Velocity 76.1 cm/s PV Mean Gradient 3.0 mmHg PV Velocity Time Integral 27.2 cm LV E' Lateral Velocity 10.2 cm/s Mitral E to LV E' Lateral Ratio 9.2 LV E' Septal Velocity 6.5 cm/s Mitral E to LV E' Septal Ratio 14.4
== END 2017-01-28 10:30 | disposition home health service (06) | DRG 139 ==
LOC: ENRESERVTM → ENRESERVDT → ERH 13:39 → 2NB 16:28 → ERHI 16:28 → 2NB 18:09 → ENPENDDIS 01-28 10:01 → 2NB 01-28 10:30
PROVIDERS: Internal Medicine Nephrology; Physician Assistant Medical; Student in an Organized Health Care Education/Training Program; ADMIT Internal Medicine
DX: J18.9 Pneumonia, unspecified organism (principal); J96.01 Acute respiratory failure with hypoxia; F17.210 Nicotine dependence, cigarettes, uncomplicated; F10.20 Alcohol dependence, uncomplicated; R91.8 Other nonspecific abnormal finding of lung field
CPT/HCPCS: 2NBP; 82103; 86480; 86738; 36415; 82436; 87040; 87389; 87449; 87450; 93005; 93010; 93306; 96374; J0131; J0456; J0696; J1650; J1885; J2930; J3490; J7040; Q2036